=== PATIENT | male | born 1950 | race Caucasian/White ===

== ENCOUNTER 2018-11-01 08:55 | Day surgery (SDC) ==
[2018-11-01] MEDS: BETADINE OPTH PREP OP PRN ×2 (09:15→10:07)
[2018-11-01] MEDS: TETRACAINE 0.5% UNIT-DOSE OP PRN ×3 (09:15→10:13)
[2018-11-01] MEDS: CYCLOGYL 2% OPTH OP PRN ×3 (09:16→09:26)
[2018-11-01] MEDS ORDERED: LIDOCAINE 1%/PHENYLEPHRINE 1.5% BSS (SURGERY) INTRAOCULA ONE (09:30)
[2018-11-01] MEDS ORDERED: ZOFRAN 4 MG/2 ML IVP ONE (09:30)
[2018-11-01] MEDS ORDERED: BRIMONIDINE TARTRATE 0.2% OPTH SOL OP PRN (09:30)
[2018-11-01] MEDS ORDERED: DEX-MOXI-KETOR OPTH INJ 1/0.5/0.4 MG/ML IO ONE (09:30)
[2018-11-01] MEDS ORDERED: LIDOCAINE 1% 20 ML MDV ID STA (09:30)
[2018-11-01] MEDS ORDERED: BSS WITH EPINEPHRINE OP ONE (09:30)
[2018-11-01 09:37] VITALS: TEMP 98.7
[2018-11-01] MEDS ORDERED: SUBLIMAZE ONE (10:03)
[2018-11-01] MEDS ORDERED: VERSED ONE (10:03)
[2018-11-01] MEDS ORDERED: ZOFRAN 4 MG/2 ML ONE (10:03)
[2018-11-02 10:51] VITALS: BP 126/79
== END 2018-11-01 11:10 | disposition home or self-care (01) ==
LOC: SURG 08:55
PROVIDERS: ATTEND Ophthalmology
DX: H25.812 Combined forms of age-related cataract, left eye (principal)

== ENCOUNTER 2018-11-21 08:45 | Day surgery (SDC) ==
[~2018-11-21 08:45] MED LIST: BRIMONIDINE TARTRATE 0.2% OPTH SOL OP PRN; BSS WITH EPINEPHRINE OP ONE; DEX-MOXI-KETOR OPTH INJ 1/0.5/0.4 MG/ML IO ONE; LIDOCAINE 1%/PHENYLEPHRINE 1.5% BSS (SURGERY) INTRAOCULA ONE; ZOFRAN 4 MG/2 ML IVP ONE
[2018-11-21] MEDS: BETADINE OPTH PREP OP PRN ×2 (08:45→09:26)
[2018-11-21] MEDS: CYCLOGYL 2% OPTH OP PRN ×3 (08:45→08:55)
[2018-11-21] MEDS: TETRACAINE 0.5% UNIT-DOSE OP PRN ×2 (08:45→09:26)
[2018-11-21] MEDS ORDERED: LIDOCAINE 1% 20 ML MDV ID STA (09:00)
[2018-11-21] MEDS ORDERED: SUBLIMAZE ONE (09:27)
[2018-11-21] MEDS ORDERED: VERSED ONE (09:27)
[2018-11-21] MEDS ORDERED: ZOFRAN 4 MG/2 ML ONE (09:27)
[2018-11-21 15:58] VITALS: BP 112/66
== END 2018-11-21 10:15 | disposition home or self-care (01) ==
LOC: SURG 08:45
PROVIDERS: ATTEND Ophthalmology
DX: H25.811 Combined forms of age-related cataract, right eye (principal)